=== PATIENT | male | born 1960 | race Caucasian/White ===

== ENCOUNTER → 2020-06-12 | Outpatient (CLI) | payer MEDICARE, BC ==
--- NOTE | 2020-06-12 16:34 | RAD ---
3 views left shoulder without comparison for left shoulder pain. FINDINGS: There is no fracture or acute osseous or alignment abnormality identified. There is an os acromiale. Mild glenohumeral osteoarthritis is noted. No pathologic calcifications. IMPRESSION: 1. No acute osseous abnormality. 2. Os acromiale. Electronically signed by: Tavares Huddleston MD (06/12/2020 4:31 PM) [id number]
== END ==
LOC: DXRAD 15:49
PROVIDERS: ATTEND Orthopaedic Surgery
DX: M19.012 Primary osteoarthritis, left shoulder (principal)
CPT/HCPCS: 73030

== ENCOUNTER → 2020-09-08 | Outpatient (CLI) | payer MEDICARE, BC ==
--- NOTE | 2020-09-08 16:50 | RAD ---
EXAMINATION: XR SHOULDER_LEFT 2+ VIEWS CLINICAL HISTORY: Left shoulder pain TECHNIQUE: XR SHOULDER_LEFT 2+ VIEWS Number of Images/Views: 3 COMPARISON: 06/12/2020 FINDINGS: Glenohumeral joint space alignment maintained with tiny inferior marginal osteophytes. Moderate hyper trophic acromioclavicular degenerative changes with small subacromial spur. Normal variant os acromia le. No acute fracture. Chronic reactive changes in the greater tuberosity. IMPRESSION: Degenerative changes as described. Electronically signed by: Ziyad Lazo DO (09/08/2020 4:48 PM) [id number]
== END ==
LOC: DXRAD 11:13
PROVIDERS: ATTEND Orthopaedic Surgery
DX: M19.012 Primary osteoarthritis, left shoulder (principal); M25.712 Osteophyte, left shoulder; M75.82 Other shoulder lesions, left shoulder
CPT/HCPCS: 73030

== ENCOUNTER → 2020-11-06 | Outpatient (CLI) | payer MEDICARE, BC ==
--- NOTE | 2020-11-06 15:20 | RAD ---
EXAM: Left shoulder, 3 views. HISTORY: Arthroplasty. COMPARISON: 09/08/2020. FINDINGS: 3 views of the left shoulder obtained. There is a reverse left shoulder arthroplasty overly ing expected position. There is soft tissue gas due to recent surgery. IMPRESSION: Reverse left shoulder arthroplasty in expected position. Electronically signed by: Radha Brambila MD (11/06/2020 3:17 PM) [id number]
== END ==
LOC: RAD 14:53
PROVIDERS: ATTEND Orthopaedic Surgery
DX: M25.512 Pain in left shoulder (principal); Z96.652 Presence of left artificial knee joint
CPT/HCPCS: 73030

== ENCOUNTER → 2020-12-18 | Outpatient (CLI) | payer MEDICARE, BC ==
--- NOTE | 2020-12-18 15:46 | RAD ---
Exam: Left shoulder 2 views INDICATION: Status post reverse total arthroplasty TECHNIQUE: Frontal and transscapular Y views of the left shoulder Comparisons: None FINDINGS: Total shoulder arthroplasty changes are noted which are well seated and well aligned. No periprosthet ic fracture or lucency identified. Bone mineralization is normal. Soft tissues are unremarkable. IMPRESSION: Left total shoulder arthroplasty changes without evidence for complication. Electronically signed by: Jennifer Long MD (12/18/2020 3:43 PM) [id number]
== END ==
LOC: RAD 15:26
PROVIDERS: ATTEND Orthopaedic Surgery
DX: M25.512 Pain in left shoulder (principal); Z96.612 Presence of left artificial shoulder joint
CPT/HCPCS: 73030

== ENCOUNTER → 2021-01-25 | Outpatient (CLI) | payer MEDICARE, BC ==
--- NOTE | 2021-01-25 16:27 | RAD ---
EXAMINATION: XR SHOULDER 2+ VIEWS BILAT CLINICAL HISTORY: Bilateral shoulder pain TECHNIQUE: XR SHOULDER 2+ VIEWS BILAT Number of Images/Views: 6 COMPARISON: Left shoulder radiographs 12/18/2020 FINDINGS: Intact bilateral reverse total shoulder arthroplasties in satisfactory alignment with no evidence of hardware complication. No acute fracture. Marked bilateral acromioclavicular degenerative changes. IMPRESSION: Bilateral reverse total shoulder arthroplasties without evidence of hardware complication. Electronically signed by: Ziyad Lazo DO (01/25/2021 4:24 PM) [id number]
== END ==
LOC: RAD 15:23
PROVIDERS: ATTEND Orthopaedic Surgery
DX: M19.012 Primary osteoarthritis, left shoulder (principal); M19.011 Primary osteoarthritis, right shoulder; Z98.890 Other specified postprocedural states
CPT/HCPCS: 73030

== ENCOUNTER → 2021-08-23 | Outpatient (CLI) | payer MEDICARE, BC ==
--- NOTE | 2021-08-23 11:04 | RAD ---
EXAM: Right knee, 3 views. HISTORY: Pain. COMPARISON: None. FINDINGS: 3 views of the right knee are obtained. There is severe medial compartment joint space narr owing, subchondral sclerosis, subchondral cyst formation and spurring. There is mild patellofemoral c ompartment spurring. There is mild genu varus. There is no fracture, dislocation or subluxation. Ther e is no joint effusion. IMPRESSION: 1. Severe medial compartment and mild patellofemoral compartment osteoarthritis of the right knee. 2. No acute osseous finding. Electronically signed by: Radha Brambila MD (08/23/2021 11:02 AM) [id number]
== END ==
LOC: RAD 10:38
PROVIDERS: ATTEND Orthopaedic Surgery
DX: M17.11 Unilateral primary osteoarthritis, right knee (principal)
CPT/HCPCS: 73562